=== PATIENT | female | born 1980 | race Caucasian/White ===

== ENCOUNTER 2017-09-17 05:24 | Day surgery (SDC) | payer MEDICARE, MEDICAID ==
[2017-09-14 14:48] LABS: COLOR,URINE YELLOW (Yellow); GLUCOSE, URINE NEGATIVE (Neg); KETONES,URINE NEGATIVE (Neg); LEUKOCYTE ESTERASE ,URINE MODERATE (Neg); NITRITES, URINE NEGATIVE (Neg); OCCULT BLOOD,URINE MODERATE (Neg); PROTEIN,URINE NEGATIVE (Neg); UROBILINOGEN,URINE 0.2 E.U/dL (0.2-1.0)
[2017-09-14 14:51] LABS: CLARITY,URINE SLIGHTLY CLOUDY (Clear); UA COLLECTION TYPE CLN CATCH MIDSTREAM
[2017-09-14 14:53] LABS: BASOPHILS % (AUTO) 0.2 % (0-1); EOSINOPHILS # (AUTO) 0.1 X10'3 (0-0.9); EOSINOPHILS % (AUTO) 0.9 % (0-6); MEAN CORPUSCULAR HGB CONC 32.5 % (33.0-36.5); MEAN CORPUSCULAR VOLUME 92.5 FL (78-98); MEAN PLATELET VOLUME 9.4 FL (7.4-10.4); MONOCYTES # (AUTO) 0.8 X10'3 (0-0.9); MONOCYTES % (AUTO) 5.8 % (2-12); NEUTROPHILS # (AUTO) 10.2 X10'3 (1.8-7.7); NEUTROPHILS % (AUTO) 78.1 % (42-75); PRE OP HEMOGLOBIN 13.3 g/dL (12.0-16.0); PRE OP PLATELET COUNT 310 X10'3 (140-440); RED BLOOD COUNT 4.44 X10'6 (4.20-5.60); RED CELL DISTRIBUTION WIDTH 12.9 % (11.5-14.5)
[2017-09-14 14:55] LABS: HCG SERUM QL NEGATIVE
[2017-09-14 14:58] LABS: ALBUMIN 3.6 G/DL (3.4-5.0); ALBUMIN/GLOBULIN RATIO 0.8 (1.1-1.5); ALKALINE PHOSPHATASE 71 IU/L (46-116); BLOOD UREA NITROGEN 12 MG/DL (7-18); BUN/CREATININE RATIO 13.3 (6.6-38.0); CALCIUM 8.5 MG/DL (8.5-10.1); CHLORIDE 103 MMOL/L (99-107); PRE OP ALT 24 U/L (30-65); PRE OP ANION GAP 7 (8-16); PRE OP AST 15 U/L (10-37); PRE OP BILIRUB, TOTAL 0.3 MG/DL (0.0-1.0); PRE OP GLUCOSE 130 MG/DL (70-104); PRE OP POTASSIUM 3.8 MMOL/L (3.4-5.1); PRE OP SODIUM 136 MMOL/L (135-145); TOTAL PROTEIN 8.4 G/DL (6.4-8.2); eGFR 71 ML/MIN
[2017-09-14 15:07] LABS: MUCUS STRANDS MANY /LPF (Neg); SQUAMOUS EPITHELIAL CELL,UR MODERATE /LPF (FEW)
[2017-09-14 15:08] LABS: BACTERIA,URINE FEW /HPF (Neg); WBC,URINE 0-4 /HPF (0-4)
[~2017-09-17] VITALS: Ht 170.2 cm; Wt 110.0 kg
[2017-09-17] VITALS (30 sets, daily range): BP systolic 106–153; BP diastolic 55–95
[~2017-09-17 05:24] MED LIST: DEXL60CA3 PO; FAMO20TA8 PO; LORA10TA7 PO; MELO-102 PO; MONT10TA24 PO; SIMV20TA5 PO
[2017-09-17] MEDS ORDERED: ceFOXitin 2 GM ADDvantage bag 100 ML IV ONE (05:30)
[2017-09-17] MEDS ORDERED: famotidine 20mg tablet PO ONE (05:30)
[2017-09-17] MEDS ORDERED: LIDOcaine 1% (10mg/ml) 2ml vial ONE (05:53)
[2017-09-17] MEDS: ringers solution, lacted 1,000 ML IV SCH ×6 (06:11→23:39)
[2017-09-17] MEDS ORDERED: BUPIVAcaine/PF 2.5mg/ml (0.25%) 10ml vial ONE (06:50)
[2017-09-17] MEDS ORDERED: epiNEPHrine 1 mg/ml inj ONE (06:50)
[2017-09-17] MEDS ORDERED: neomy sulf/polymyxin B sulf. GU irrigation 1ml amp IR ONE (06:51)
[2017-09-17] MEDS ORDERED: vasoPRESSIN 20 units/ml inj. ONE (06:51)
[2017-09-17] MEDS ORDERED: midazolam 2 mg/2 ml injection ONE (07:14)
[2017-09-17] MEDS ORDERED: fentaNYL /PF 50mcg/ml 5ml ampule ONE (07:15)
[2017-09-17] MEDS ORDERED: dexamethasone sod phosphate 4mg/ml inj. ONE (07:16)
[2017-09-17] MEDS ORDERED: rocuronium 10mg/ml inj IV ONE ×2 (07:16→08:35)
[2017-09-17] MEDS ORDERED: propofol inj 20 ML IV ONE (07:16)
[2017-09-17] MEDS ORDERED: glycopyrrolate 0.2mg/ml inj ONE (07:16)
[2017-09-17] MEDS ORDERED: neostigmine methylsulfate 1 MG/ML 10ml vial ONE (07:16)
[2017-09-17] MEDS ORDERED: LIDOcaine 2% (20mg/ml) 5ml vial ONE (07:16)
[2017-09-17] MEDS ORDERED: hydrALAZINE 20mg/ml inj. IV PRN (07:20)
[2017-09-17] MEDS ORDERED: fentaNYL/PF 50MCG/1 ML 2ML syringe IV PRN ×2 (07:20)
[2017-09-17] MEDS ORDERED: ringers solution, lacted 1,000 ML IV SCH (07:20)
[2017-09-17] MEDS ORDERED: morphine 4 MG/ML inj SYRINge IV PRN ×2 (07:20)
[2017-09-17] MEDS ORDERED: ondansetron/PF 4mg/2ml inj IV PRN ×2 (07:20→09:20)
[2017-09-17] MEDS ORDERED: labetalol 5mg/ml 20ml inj. IV PRN (07:20)
[2017-09-17] MEDS ORDERED: sevoflurane 250ml liquid IH ONE (07:35)
[2017-09-17] MEDS ORDERED: labetalol 5mg/ml 20ml inj. IV ONE (08:10)
[2017-09-17] MEDS ORDERED: ondansetron/PF 4mg/2ml inj ONE (08:34)
[2017-09-17] MEDS ORDERED: albuterol 2.5 MG/3 ML nebule NEB PRN (09:20)
[2017-09-17] MEDS ORDERED: normal saline 500ml IV soln 500 ML IV PRN (09:20)
[2017-09-17] MEDS ORDERED: metoclopramide 5 mg/ml inj IV PRN (09:20)
[2017-09-17] MEDS ORDERED: LORazepam 2 mg/ml vial IV PRN (09:20)
[2017-09-17] MEDS ORDERED: diphenhydrAMINE 50 mg/ml inj IV PRN (09:20)
[2017-09-17] MEDS ORDERED: temazepam 15mg capsule PO PRN (09:20)
[2017-09-17] MEDS ORDERED: ketorolac trometh. 30mg/ml inj. IV PRN (09:20)
[2017-09-17] MEDS ORDERED: HYDROcodone/acetaminophen 10/325mg tab PO PRN ×2 (09:20)
[2017-09-17] MEDS ORDERED: magnesium hydroxide 30ml (MOM) UD suspension PO PRN (09:20)
[2017-09-17] MEDS: simethicone 80mg chew tab PO SCH ×2 (12:50→17:59)
[2017-09-17] MEDS ORDERED: atorvastatin 10mg tablet PO SCH (21:00)
[2017-09-17] MEDS: famotidine 20mg tablet PO SCH (21:17)
[2017-09-17] MEDS: docusate sod 100mg capsule PO SCH (21:17)
[2017-09-18] VITALS: BP 107/53
[2017-09-18 04:00] VITALS: BP 111/57
[2017-09-18 05:15] LABS: BASOPHILS % (AUTO) 0 % (0-1); EOSINOPHILS % (AUTO) 0 % (0-6); HEMATOCRIT 34.9 % (35.0-45.0); HEMOGLOBIN 11.9 g/dl (12.0-16.0); LYMPHOCYTES # (AUTO) 1.4 X10'3 (1.1-4.8); LYMPHOCYTES % (AUTO) 5.7 % (21-51); MEAN CORPUSCULAR HEMOGLOBIN 31.4 PG (27.0-31.0); MEAN CORPUSCULAR VOLUME 92.2 FL (78-98); MONOCYTES # (AUTO) 1.5 X10'3 (0-0.9); MONOCYTES % (AUTO) 6.1 % (2-12); NEUTROPHILS # (AUTO) 21.3 X10'3 (1.8-7.7); NEUTROPHILS % (AUTO) 88.2 % (42-75); PLATELET COUNT 270 X10'3 (140-440); RED BLOOD COUNT 3.78 X10'6 (4.20-5.60); RED CELL DISTRIBUTION WIDTH 13.9 % (11.5-14.5); WHITE BLOOD COUNT 24.1 X10'3 (4.5-11.0)
[2017-09-18 05:33] LABS: ANION GAP 9 (8-16); BLOOD UREA NITROGEN 13 MG/DL (7-18); BUN/CREATININE RATIO 14.4 (6.6-38.0); CALCIUM 9.1 MG/DL (8.5-10.1); CHLORIDE 106 MMOL/L (99-107); GLUCOSE 165 MG/DL (70-104); POTASSIUM 4.3 MMOL/L (3.5-5.1); SODIUM 140 MMOL/L (135-145); eGFR 71 ML/MIN
[2017-09-18] MEDS ORDERED: pantoprazole 40mg Tablet.DR PO SCH (07:30)
[2017-09-18 07:53] VITALS: BP 105/54
[2017-09-18] MEDS: docusate sod 100mg capsule PO SCH (07:57)
[2017-09-18] MEDS: simethicone 80mg chew tab PO SCH (07:58)
[2017-09-18] MEDS: famotidine 20mg tablet PO SCH (07:58)
[2017-09-18] MEDS ORDERED: enoxaparin 40mg/0.4ml syringe SQ SCH (08:00)
[2017-09-18] MEDS ORDERED: loratadine 10mg tablet PO SCH (08:00)
[2017-09-18] MEDS ORDERED: montelukast 10mg tablet PO SCH (08:00)
[2017-09-18 11:16] VITALS: BP 137/72
[2017-09-20] MEDS ORDERED: naproxen 500mg tablet PO SCH (08:00)
== END 2017-09-18 13:30 | disposition home or self-care (01) ==
LOC: PAS 05:24 → SUR 3N 09:17 → PAS 09-18 13:30
PROVIDERS: ATTEND Obstetrics & Gynecology Obstetrics
DX: N83.11 Corpus luteum cyst of right ovary (principal); N72 Inflammatory disease of cervix uteri; N83.8 Other noninflammatory disorders of ovary, fallopian tube and broad ligament; N73.6 Female pelvic peritoneal adhesions (postinfective); G43.909 Migraine, unspecified, not intractable, without status migrainosus; K21.9 Gastro-esophageal reflux disease without esophagitis; E66.01 Morbid (severe) obesity due to excess calories; Z68.38 Body mass index [BMI] 38.0-38.9, adult; Z91.013 Allergy to seafood; Z98.51 Tubal ligation status; Z79.1 Long term (current) use of non-steroidal anti-inflammatories (NSAID); Z79.891 Long term (current) use of opiate analgesic; Z79.899 Other long term (current) drug therapy; Z98.890 Other specified postprocedural states; Z83.3 Family history of diabetes mellitus
CPT/HCPCS: 36415; 58552; 80048; 80053; 81001; 84703; 85025; 86885; 86900; 86901; 87088; 93005; A4315; J0171; J0694; J1100; J1885; J2001; J2250; J2270; J2405; J2704; J2710; J3010; J3490; J7030; J7120; 88305; 88307; A7000; J1650

== ENCOUNTER 2018-12-25 18:28 | Emergency (ER) | payer MEDICARE, MEDICAID ==
[~2018-12-25] VITALS: Ht 172.7 cm; Wt 112.5 kg
[2018-12-25 19:30] LABS: URINE HCG NEGATIVE (NEG)
[2018-12-25 19:47] LABS: COLOR,URINE YELLOW (Yellow); GLUCOSE, URINE NEGATIVE (Neg); KETONES,URINE NEGATIVE (Neg); LEUKOCYTE ESTERASE ,URINE NEGATIVE (Neg); NITRITES, URINE NEGATIVE (Neg); OCCULT BLOOD,URINE SMALL (Neg); PROTEIN,URINE NEGATIVE (Neg); UROBILINOGEN,URINE 0.2 E.U/dL (0.2-1.0)
[2018-12-25 19:50] LABS: CLARITY,URINE SLIGHTLY CLOUDY (Clear); UA COLLECTION TYPE CLN CATCH MIDSTREAM
[2018-12-25 20:02] LABS: BACTERIA,URINE 2+ /HPF (Neg); MUCUS STRANDS MODERATE /LPF (Neg); WBC,URINE 0-4 /HPF (0-4)
[2018-12-25 20:03] LABS: HYALINE CASTS 0-3 /LPF (NEGATIVE); SQUAMOUS EPITHELIAL CELL,UR MODERATE /LPF (FEW)
[2018-12-25 20:06] LABS: BASOPHILS # (AUTO) 0.1 X10'3 (0-0.2); BASOPHILS % (AUTO) 0.5 % (0-1); EOSINOPHILS # (AUTO) 0.5 X10'3 (0-0.9); EOSINOPHILS % (AUTO) 3.3 % (0-6); HEMATOCRIT 41.5 % (35.0-45.0); HEMOGLOBIN 13.9 g/dl (12.0-16.0); LYMPHOCYTES # (AUTO) 2.7 X10'3 (1.1-4.8); LYMPHOCYTES % (AUTO) 18.1 % (21-51); MEAN CORPUSCULAR HGB CONC 33.6 g/dL (33.0-36.5); MEAN CORPUSCULAR VOLUME 92.3 FL (78-98); MEAN PLATELET VOLUME 8.9 FL (7.4-10.4); MONOCYTES # (AUTO) 1.1 X10'3 (0-0.9); MONOCYTES % (AUTO) 7.1 % (2-12); NEUTROPHILS # (AUTO) 10.8 X10'3 (1.8-7.7); PLATELET COUNT 310 X10'3 (140-440); RED BLOOD COUNT 4.49 X10'6 (4.20-5.60); RED CELL DISTRIBUTION WIDTH 13.6 % (11.5-14.5); WHITE BLOOD COUNT 15.1 X10'3 (4.5-11.0)
[2018-12-25 20:17] LABS: ALANINE AMINOTRANSFERASE 38 U/L (12-78); ALBUMIN 3.7 G/DL (3.4-5.0); ALBUMIN/GLOBULIN RATIO 0.7 (1.1-1.5); ALKALINE PHOSPHATASE 87 IU/L (46-116); ANION GAP 8 (8-16); ASPARTATE AMINO TRANSFERASE 23 U/L (10-37); BILIRUBIN,TOTAL 0.1 MG/DL (0.1-1.0); BLOOD UREA NITROGEN 22 MG/DL (7-18); BUN/CREATININE RATIO 24.2 (6.6-38.0); CALCIUM 9.4 MG/DL (8.5-10.1); CHLORIDE 103 MMOL/L (99-107); CREATININE 0.91 MG/DL (0.40-0.90); GLUCOSE 128 MG/DL (70-104); POTASSIUM 4.8 MMOL/L (3.5-5.1); SODIUM 139 MMOL/L (135-145); TOTAL CARBON DIOXIDE 27.9 MMOL/L (24-32); eGFR 69 ML/MIN
[2018-12-25] MEDS ORDERED: BISA10SU60 RC (20:53)
[2018-12-25] MEDS ORDERED: bisacodyl 10mg suppository rectal RC ONE (20:55)
[2018-12-25] MEDS ORDERED: magnesium citrate 296ml oral solution PO ONE (20:55)
[2018-12-25 21:16] VITALS: BP 136/73
== END 2018-12-25 21:18 | disposition home or self-care (01) ==
LOC: ER 18:28
DX: K59.00 Constipation, unspecified (principal); R10.32 Left lower quadrant pain; R30.0 Dysuria; Z90.710 Acquired absence of both cervix and uterus; Z91.013 Allergy to seafood; Z79.899 Other long term (current) drug therapy
CPT/HCPCS: 36415; 74018; 80053; 81001; 81025; 85025; 85610; 99284